=== PATIENT | male | born 1970 | race Caucasian/White ===

== ENCOUNTER 2017-11-23 06:23 | Inpatient (IN) ==
[2017-11-16 15:51] LABS: Basophils # (Auto) 0.1 K/mcL (0.0-0.3); Basophils % (Auto) 0.8 % (0.0-2.0); Eosinophils # (Auto) 0.8 K/mcL (0.0-0.7); Eosinophils % (Auto) 7.8 % (0.0-7.0); Granulocytes % (Auto) 58.3 % (38.0-78.0); Lymphocytes # (Auto) 2.9 K/mcL (1.5-4.8); Lymphocytes % (Auto) 27.4 % (15.5-49.0); Mean Cell Volume 92.7 fL (80.0-100.0); Mean Corpuscular HGB Conc 32.8 g/dL (31.0-36.0); Mean Corpuscular Hemoglobin 30.4 pg (26.0-34.0); Monocytes # (Auto) 0.6 K/mcL (0.1-0.9); Monocytes % (Auto) 5.7 % (1.0-12.0); Platelet Count 300 K/mcL (140-440); RBC 5.56 M/mcL (4.50-5.90); Red Cell Distribution Width 14.2 % (11.5-14.5)
[2017-11-16 16:09] LABS: Blood Urea Nitrogen 21 mg/dl (6-20)
[~2017-11-23 06:23] MED LIST: IPRATROPIUM/ALBUTEROL 3 ML AMPUL.NEB NEB PRN; SCOPOLAMINE 1 PATCH PATCH TOPICAL PRN
[2017-11-23] MEDS ORDERED: KETOROLAC 30 MG, ROPIVACAINE HCL/PF 49.5 ML, EPINEPHrine 0.5 MG, 0.9 % SODIUM CHLORIDE ... IJ ONE (08:00)
[2017-11-23] MEDS: ceFAZolin 1 GM VIAL IV SCH ×3 (09:39→16:52)
[2017-11-23] MEDS ORDERED: PROPOFOL 200 MG/20 ML VIAL IV ONE (09:53)
[2017-11-23] MEDS ORDERED: MIDAZOLAM 5 MG/5 ML VIAL ONE (09:53)
[2017-11-23] MEDS ORDERED: LIDOCAINE HCL/PF 100 MG/5 ML SYRINGE IV ONE (09:53)
[2017-11-23] MEDS ORDERED: DEXAMETHASONE 10 MG/ML VIAL ONE (09:53)
[2017-11-23] MEDS ORDERED: ONDANSETRON 4 MG/2 ML VIAL ONE (09:53)
[2017-11-23 09:56] LABS: Appearance,Urine CLEAR; Bilirubin,Urine NEG (NEG); Color,Urine YELLOW; Glucose,Urine (UA) NEGATIVE (NEG); Leukocyte Esterase,Urine NEG /uL (NEG); Nitrate,Urine NEG (NEG); Protein,Urine NEG (NEG); Specific Gravity,Urine 1.021 (1.000-1.035); Urine Blood NEG mg/dL (<0.03); Urobilinogen,Urine NEG (NEG)
[2017-11-23] MEDS ORDERED: GENTAMICIN SULFATE 800 MG/20 ML VIAL IR ONE (11:19)
[2017-11-23] MEDS ORDERED: BENZOCAINE/MENTHOL 1 LOZENGE PO PRN ×2 (11:59→12:04)
[2017-11-23] MEDS ORDERED: FLUMAZENIL 0.1 MG/ML ML IV PRN (11:59)
[2017-11-23] MEDS ORDERED: fentaNYL 100 MCG/2 ML VIAL IV PRN (11:59)
[2017-11-23] MEDS ORDERED: LACTATED RINGERS 250 ML IV PRN (11:59)
[2017-11-23] MEDS ORDERED: diphenhydrAMINE 50 MG/ML VIAL IV PRN (11:59)
[2017-11-23] MEDS ORDERED: IPRATROPIUM/ALBUTEROL 3 ML AMPUL.NEB NEB PRN (11:59)
[2017-11-23] MEDS ORDERED: NALOXONE HCL 0.4 MG/ML VIAL IV PRN (11:59)
[2017-11-23] MEDS ORDERED: MEPERIDINE 25 MG/ML SYRINGE IV PRN (11:59)
[2017-11-23] MEDS ORDERED: ACETAMINOPHEN 1,000 MG/100 ML BOTTLE IV ONE (11:59)
[2017-11-23] MEDS ORDERED: ONDANSETRON 4 MG/2 ML VIAL IV PRN ×2 (11:59→12:04)
[2017-11-23] MEDS ORDERED: PROMETHAZINE 25 MG/ML VIAL IV PRN (11:59)
[2017-11-23] MEDS ORDERED: LACTATED RINGERS 1,000 ML IV SCH (12:00)
[2017-11-23] MEDS ORDERED: HYDROmorphone 2 MG/ML SYRINGE IV PRN (12:04)
[2017-11-23] MEDS ORDERED: POLYETHYLENE GLYCOL 3350 17 GM PACKET PO PRN (12:04)
[2017-11-23] MEDS ORDERED: FLEETS ADULT ENEMA PR PRN (12:04)
[2017-11-23] MEDS ORDERED: MAGNESIUM HYDROXIDE 30 ML ORAL.SUSP PO PRN (12:04)
[2017-11-23] MEDS ORDERED: TRANEXAMIC ACID 1,000 MG/10 ML VIAL IV ONE (12:04)
[2017-11-23] MEDS ORDERED: ALBUTEROL SULFATE 1 PUFF INHALER INH PRN (12:10)
--- NOTE | 2017-11-23 12:56 | XRay Report ---
CLINICAL INFORMATION: Postop knee prostheses COMPARISON: None. FINDINGS: Total knee prostheses is anatomically aligned. No osseous abnormality. Periarticular gas and soft tissue swelling are seen as expected. IMPRESSION: Negative Interpreted and Authenticated by: Marshal Kate 11/23/17
--- NOTE | 2017-11-23 13:45 | Operative Note ---
DATE OF OPERATION: 11/23/2017 PREOPERATIVE DIAGNOSIS: Degenerative joint disease of the right knee. POSTOPERATIVE DIAGNOSIS: Degenerative joint disease of the right knee. OPERATION: Right total knee replacement. SURGEON: Alex Murillo M.D. ROAD PACKER OPERATOR: Terrence Ch PA-C. ANESTHESIA: General done by Rafal Mariano CRNA. SUMMARY OF PROCEDURE: General anesthesia was attained. The right leg was prepped and draped. A midline incision was made from the quadriceps to the tibial tubercle. It was taken down sharply to the quadriceps and medial retinaculum. Of note, the tourniquet was not used except for cementation. The quadriceps and medial retinaculum was split longitudinally. The patella was mobilized laterally. The menisci were resected anteriorly. The ACL remnant was removed. The knee was now exposed. It was flexed past 90 degrees. The intramedullary canal of the femur and tibia were opened with a drill. The femur was next reamed. The distal cutting guide was placed. A 9.5 mm resection was done distally. We then turned attention to the tibia. The knee was flexed past 90 degrees. The intramedullary canal of the tibia was reamed and then the proximal cutting guide was placed. The cut was made 7 mm below the low point medially. The cut was made. We then did a gap balancing technique. The femur sized between an 8 and 9. I ultimately used a size 8 component. We adjusted the flexion gap and external rotation using the gap brass roller. The pins were next placed. The femur ultimately sized to an 8. We did the anterior bevel cuts and posterior cut. The tibia was next prepared. The intramedullary canal was reamed and then broached. The tibia sized to a 7. We got an excellent combination of stability with a full range of motion using a 5 mm trial. The notch cuts were made in the femur. The two drill holes were also made in the distal femur. The patella was everted. His depth was 27 mm. An 11 to 12 mm cut was made parallel to the anterior surface. The patella sized to a 38. Excess lateral facet was removed while the trial was in place. The no-touch test showed a lateral release was not needed. The joint surfaces were thoroughly irrigated. The posterior part of the joint was infiltrated with local block for postoperative analgesia. The components were cemented in. Excess cement was removed. The knee was kept in full extension while the cement set up. We did use tourniquet for the cementation. Total tourniquet time was 19 minutes. All bleeding points were coagulated. The quadriceps and medial retinaculum were closed with interrupted and [id number] sutures of #2 FiberWire and then a running locking 0 Maxon. This was done in 30 degrees of flexion. The subcutaneous tissue was closed with interrupted buried 2-0 Monocryl. The skin was closed with viviana. A sterile compressive dressing was applied. The sponge and needle count was correct. The patient tolerated the procedure well and was taken to the recovery room in stable condition. TJF:[email or web address] Job ID: [id number] Doc ID: [id number] Alex Murillo MD
[2017-11-23] MEDS: 0.9 % SODIUM CHLORIDE 10 ML SYRINGE IV SCH ×2 (14:29→20:33)
[2017-11-23] MEDS: oxyCODONE HCL 5 MG TABLET PO PRN ×2 (14:35→19:57)
--- NOTE | 2017-11-23 15:22 | Brief Operative Note ---
Date of procedure: 11/23/17 Pre-op diagnosis: DJD right knee Post-op diagnosis: same Procedure: R TKR Grafts/Implants: Yes (Depuy Attune CR S+) Anesthesia: GETA Complications: none Surgeon: Alex Murillo Weather Algorithm Scientist: Terrence Ch Estimated blood loss (cc): 500 Tourniquet Time (Minutes): 19 Specimens Removed/Pathology: none sent Condition: stable Disposition: PACU
[2017-11-23] MEDS: 0.9 % SODIUM CHLORIDE 1,000 ML IV SCH (15:27)
[2017-11-23] MEDS: DOCUSATE SODIUM 100 MG CAPSULE PO SCH (19:56)
[2017-11-23] MEDS: ATORVASTATIN 20 MG TABLET PO SCH (19:57)
[2017-11-23] MEDS: ENOXAPARIN 30 MG/0.3 ML SYRINGE SQ SCH (19:58)
[2017-11-23] MEDS: METHOCARBAMOL 750 MG TABLET PO PRN (21:35)
[2017-11-24] MEDS: 0.9 % SODIUM CHLORIDE 1,000 ML IV SCH ×3 (00:27→18:54)
[2017-11-24] MEDS: ceFAZolin 1 GM VIAL IV SCH (00:37)
[2017-11-24] MEDS: oxyCODONE HCL 5 MG TABLET PO PRN ×5 (00:37→19:02)
[2017-11-24] MEDS: METHOCARBAMOL 750 MG TABLET PO PRN ×2 (04:46→14:21)
--- NOTE | 2017-11-24 07:46 | Orthopedic Progress Note ---
Subjective Patient information: Note initiated : 11/24/17 at 7:44 am Service Date, if different from initiated Date: [] Patient: Malik Arias 47 y/o M admitted on 11/23/17 for Right Total Knee Arthroplasty. Chief Complaint: [] Principal diagnosis: walked in hallways last night. Pain control good thud far Objective Vital signs: Vital Signs Temp Pulse Resp BP Pulse Ox 11/24/17 06:44 98.4 F 20 159/73 93 11/24/17 03:43 98.7 F 100 H 22 121/72 94 11/24/17 00:00 98.2 F 78 20 117/68 97 11/23/17 20:00 98.5 F 98 H 22 137/96 92 11/23/17 14:18 81 145/82 95 11/23/17 14:03 74 136/78 94 11/23/17 13:38 84 136/78 96 11/23/17 13:33 79 147/82 95 11/23/17 13:18 83 146/70 95 11/23/17 13:07 97.8 F 94 H 18 122/79 96 11/23/17 12:55 92 H 12 125/79 97 11/23/17 12:50 90 16 133/83 97 11/23/17 12:45 88 19 132/70 97 11/23/17 12:40 89 18 135/86 98 11/23/17 12:35 97 H 22 119/71 98 11/23/17 12:30 98 H 22 137/103 96 11/23/17 12:25 97.1 F 90 21 119/71 99 Intake and Output 11/23/17 11/24/17 11/24/17 21:59 05:59 13:59 Intake Total 120 / 120 1600 / 1600 Output Total 1200 / 1200 Balance 120 / 120 400 / 400 Intake: Oral 120 / 120 1600 / 1600 Output: Void Amount 1200 / 1200 Other: Meal Dinner fruit cup Percent of Meal Consumed 100% 100% Feeding Ability Independent Weight 373 lb Intake & Output: Intake & Output 11/23/17 11/24/17 11/24/17 21:59 05:59 13:59 Intake Total 120 / 120 1600 / 1600 Output Total 1200 / 1200 Balance 120 / 120 400 / 400 Weight 373 lb Intake: Oral 120 / 120 1600 / 1600 Output: Void Amount 1200 / 1200 Other: Meal Dinner fruit cup Percent of Meal Consumed 100% 100% Feeding Ability Independent Dressing: Yes clean, Yes dry, Yes intact Weight bearing status: full Extremities exam IM: Yes Foot pink and warm, Yes neurovascular intact - Labs CBC & BMP: 11/24/17 04:41 11/16/17 14:04 Labs: Orthopedic Labs 11/16/17 14:04 PT 13.2 INR 1.0 11/24/17 11/16/17 04:41 14:04 Hgb 14.4 16.9 H Hct 43.8 51.6 Assessment and Plan (1) Tricompartment degenerative joint disease of knee Continue PT, lovenox. Add CPM Status: Chronic Qualifiers:
[2017-11-24] MEDS: FERROUS SULFATE 325 MG TABLET PO SCH (08:15)
[2017-11-24] MEDS: diphenhydrAMINE 25 MG CAPSULE PO PRN ×3 (08:15→19:02)
[2017-11-24] MEDS: LISINOPRIL 10 MG TABLET PO SCH (08:15)
[2017-11-24] MEDS: DOCUSATE SODIUM 100 MG CAPSULE PO SCH ×2 (08:16→21:45)
[2017-11-24] MEDS: ENOXAPARIN 30 MG/0.3 ML SYRINGE SQ SCH ×2 (08:16→21:45)
[2017-11-24] MEDS: 0.9 % SODIUM CHLORIDE 10 ML SYRINGE IV SCH ×3 (10:10→21:45)
[2017-11-24] MEDS: ATORVASTATIN 20 MG TABLET PO SCH (21:44)
[2017-11-25] MEDS: 0.9 % SODIUM CHLORIDE 1,000 ML IV SCH ×2 (03:13→14:52)
[2017-11-25] MEDS: oxyCODONE HCL 5 MG TABLET PO PRN ×5 (04:15→21:14)
[2017-11-25] MEDS: 0.9 % SODIUM CHLORIDE 10 ML SYRINGE IV SCH ×3 (08:07→21:14)
[2017-11-25] MEDS: ENOXAPARIN 30 MG/0.3 ML SYRINGE SQ SCH ×2 (09:42→21:14)
[2017-11-25] MEDS: DOCUSATE SODIUM 100 MG CAPSULE PO SCH ×2 (09:42→21:14)
[2017-11-25] MEDS: FERROUS SULFATE 325 MG TABLET PO SCH (09:42)
[2017-11-25] MEDS: LISINOPRIL 10 MG TABLET PO SCH ×2 (11:51→19:09)
--- NOTE | 2017-11-25 20:08 | Orthopedic Progress Note ---
Subjective Patient information: Note initiated : 11/25/17 at 8:06 pm Service Date, if different from initiated Date: [] Patient: Malik Arias 47 y/o M admitted on 11/23/17 for Right Total Knee Arthroplasty. Chief Complaint: [] Principal diagnosis: walked in hallways last night. Pain control good thud far Objective Vital signs: Vital Signs Temp Pulse Pulse Resp BP BP Pulse Ox 11/25/17 19:06 98.6 F 109 H 20 141/92 96 11/25/17 15:34 97.8 F 18 149/76 94 11/25/17 11:53 97.5 F 20 148/80 93 11/25/17 07:44 97.8 F 20 130/85 94 11/25/17 04:12 98.4 F 104 H 22 127/80 93 11/25/17 01:40 97.4 F 86 22 124/77 95 11/25/17 01:20 109 H 127/85 88 L 11/25/17 01:10 112 H 109/73 90 11/25/17 01:05 101 H 93/73 93 11/24/17 21:49 88 20 129/80 96 Intake and Output 11/25/17 11/25/17 11/25/17 05:59 13:59 21:59 Intake Total 1170 / 1170 550 / 550 400 / 400 Output Total 1050 / 1050 950 / 950 650 / 650 Balance 120 / 120 -400 / -400 -250 / -250 Intake: Oral 1170 / 1170 550 / 550 400 / 400 Output: Void Amount 1050 / 1050 950 / 950 650 / 650 Other: Meal yogurt Lunch Percent of Meal Consumed 100% 25% Feeding Ability Independent # Voids 1 # Bowel Movements 1 Weight 349 lb 4.8 oz Intake & Output: Intake & Output 11/25/17 11/25/17 11/25/17 05:59 13:59 21:59 Intake Total 1170 / 1170 550 / 550 400 / 400 Output Total 1050 / 1050 950 / 950 650 / 650 Balance 120 / 120 -400 / -400 -250 / -250 Weight 349 lb 4.8 oz Intake: Oral 1170 / 1170 550 / 550 400 / 400 Output: Void Amount 1050 / 1050 950 / 950 650 / 650 Other: Meal yogurt Lunch Percent of Meal Consumed 100% 25% Feeding Ability Independent # Voids 1 # Bowel Movements 1 Incision clean and dry: Yes Dressing: Yes clean, Yes dry, Yes intact Weight bearing status: full - Diagnostic Results Knee x-ray: image reviewed (well positioned TKR, no complications) - Labs CBC & BMP: 11/25/17 04:28 11/16/17 14:04 Labs: Orthopedic Labs 11/16/17 14:04 PT 13.2 INR 1.0 11/25/17 11/24/17 11/16/17 04:28 04:41 14:04 Hgb 14.4 14.4 16.9 H Hct 43.2 43.8 51.6 Assessment and Plan (1) Tricompartment degenerative joint disease of knee Continue PT, lovenox.CPM Status: Chronic Qualifiers:
[2017-11-25] MEDS: ATORVASTATIN 20 MG TABLET PO SCH (21:14)
[2017-11-25] MEDS: ALBUTEROL SULFATE 2.5 MG/3 ML NEBULIZER NEB PRN (23:08)
[2017-11-26] MEDS: oxyCODONE HCL 5 MG TABLET PO PRN ×5 (01:59→21:40)
[2017-11-26] MEDS: METHOCARBAMOL 750 MG TABLET PO PRN ×3 (02:00→17:06)
[2017-11-26] MEDS: diphenhydrAMINE 25 MG CAPSULE PO PRN ×2 (02:14→21:40)
[2017-11-26] MEDS: 0.9 % SODIUM CHLORIDE 10 ML SYRINGE IV SCH ×3 (06:22→21:41)
[2017-11-26] MEDS: DOCUSATE SODIUM 100 MG CAPSULE PO SCH ×2 (09:23→21:40)
[2017-11-26] MEDS: LISINOPRIL 10 MG TABLET PO SCH (09:23)
[2017-11-26] MEDS: ENOXAPARIN 30 MG/0.3 ML SYRINGE SQ SCH ×2 (09:23→21:41)
[2017-11-26] MEDS: FERROUS SULFATE 325 MG TABLET PO SCH (09:23)
--- NOTE | 2017-11-26 12:34 | Orthopedic Progress Note ---
Subjective Patient information: Note initiated : 11/26/17 at 12:33 pm Service Date, if different from initiated Date: [] Patient: Malik Arias 47 y/o M admitted on 11/23/17 for Right Total Knee Arthroplasty. Chief Complaint: [] Principal diagnosis: walked in hallways last night. Pain control good thud far Objective Vital signs: Vital Signs Temp Pulse Pulse Resp BP Pulse Ox 11/26/17 11:30 97.3 F 20 106/67 93 11/26/17 06:49 98.7 F 20 99/64 93 11/26/17 03:36 98.3 F 102 H 20 126/80 94 11/25/17 23:27 98.4 F 99 H 22 131/87 94 11/25/17 23:17 95 H 14 11/25/17 23:09 94 11/25/17 19:06 98.6 F 109 H 20 141/92 96 11/25/17 15:34 97.8 F 18 149/76 94 Intake and Output 11/25/17 11/26/17 11/26/17 21:59 05:59 13:59 Intake Total 400 / 400 900 / 900 Output Total 1275 / 1275 1025 / 1025 975 / 975 Balance -875 / -875 -125 / -125 -975 / -975 Intake: Oral 400 / 400 900 / 900 Output: Void Amount 1275 / 1275 1025 / 1025 975 / 975 Other: Meal Dinner Percent of Meal Consumed 100% Feeding Ability Independent Weight 380 lb 12.8 oz Intake & Output: Intake & Output 11/25/17 11/26/17 11/26/17 21:59 05:59 13:59 Intake Total 400 / 400 900 / 900 Output Total 1275 / 1275 1025 / 1025 975 / 975 Balance -875 / -875 -125 / -125 -975 / -975 Weight 380 lb 12.8 oz Intake: Oral 400 / 400 900 / 900 Output: Void Amount 1275 / 1275 1025 / 1025 975 / 975 Other: Meal Dinner Percent of Meal Consumed 100% Feeding Ability Independent Incision: Yes healing, Yes clean and dry Incision clean and dry: Yes Weight bearing status: as tolerated Neurological exam IM: Yes neurovascular intact - Labs CBC & BMP: 11/26/17 04:23 11/16/17 14:04 Labs: Orthopedic Labs 11/16/17 14:04 PT 13.2 INR 1.0 11/26/17 11/25/17 11/24/17 04:23 04:28 04:41 Hgb 13.6 14.4 14.4 Hct 40.2 L 43.2 43.8 11/16/17 14:04 Hgb 16.9 H Hct 51.6 Assessment and Plan (1) Tricompartment degenerative joint disease of knee Continue PT, lovenox.CPM Status: Chronic Qualifiers: Laterality: right
[2017-11-26] MEDS: ALBUTEROL SULFATE 2.5 MG/3 ML NEBULIZER NEB PRN (20:30)
[2017-11-26] MEDS: ATORVASTATIN 20 MG TABLET PO SCH (21:40)
[2017-11-27] MEDS: oxyCODONE HCL 5 MG TABLET PO PRN ×3 (02:08→12:37)
[2017-11-27] MEDS: METHOCARBAMOL 750 MG TABLET PO PRN ×2 (02:08→12:37)
[2017-11-27] MEDS: 0.9 % SODIUM CHLORIDE 10 ML SYRINGE IV SCH ×2 (05:54→14:04)
--- NOTE | 2017-11-27 07:13 | Discharge Summary ---
Providers - Providers Patient information: Note initiated : 11/27/17 at 7:11 am Service Date, if different from initiated Date: [] Patient: Malik Arias 47 y/o M admitted on 11/23/17 for Right Total Knee Arthroplasty. Chief Complaint: [] Date of admission: 11/23/17 Discharge date: 11/27/17 Hospitalization Hospital course: Patient was admitted after Right TKA for post op pain control and PT. He will be discharged with home health. No complications during his stay. Discharge diagnosis: s/p right TKA Exam - Exam Incision healing: Yes Incision draining: No Incision red: No Incision swollen: No Clean and dry: Yes Weight bearing status: full Range of motion: 0-80 Ortho Discharge - TKA - Patient Instructions Diet: Regular Diet Activity: activity as tolerated Total Knee Protocol: For Total Knee: Start ROM DANILO with stationary bike or rocking chair. Work on gaining full extension of knee. Posterior dislocation precautions provided. Hip abductor strengthening and gait training instructions provided. Apply Cryocuff as instructed. Dressing Care: May shower in 2 days Additional Dressing Instructions: Leave dermabond patch over incision until follow up appointment Patient Education: Total Knee Replacement (DC) - Follow Up Plan Follow Up Appointments: Terrence Ch PA-C [Physician Shipping Assistant] - 12/06/17 Disposition: Home, Self-Care Prognosis: Fair Rehab Potential: Fair I certify that the patient requires SNF services: Yes (home health) - Orders For Discharge Prescriptions: Enoxaparin [Lovenox] 30 mg SQ BID #20 syringe oxyCODONE HCL [Roxicodone] 10 mg PO Q6HP PRN #60 tab PRN Reason: Pain Additional Discharge Orders: Physical Therapy at Discharge - TKA Location: Determined By Patient Pending Studies Resuscitation Status Full Code Diet Regular Diet Start MonNov 23 1214 Albuterol Sulfate (Ventolin) 2.5 mg NEB Q4-6HP PRN PRN Reason: bronchospasm Last Admin: 11/26/17 20:30 Dose: 2.5 mg Admin: 11/25/17 23:08 Dose: 2.5 mg Atorvastatin Calcium (Lipitor) 10 mg PO HS INDRA Last Admin: 11/26/17 21:40 Dose: 10 mg Admin: 11/25/17 21:14 Dose: 10 mg Admin: 11/24/17 21:44 Dose: 10 mg Admin: 11/23/17 19:57 Dose: 10 mg Diphenhydramine HCl (Benadryl) 25 mg PO Q4-6HP PRN PRN Reason: Allergic Symptoms Last Admin: 11/26/17 21:40 Dose: 25 mg Admin: 11/26/17 02:14 Dose: 25 mg Admin: 11/24/17 19:02 Dose: 25 mg Admin: 11/24/17 14:21 Dose: 25 mg Admin: 11/24/17 08:15 Dose: 25 mg Docusate Sodium (Colace) 100 mg PO BID [facility] Last Admin: 11/26/17 21:40 Dose: 100 mg Admin: 11/26/17 09:23 Dose: 100 mg Admin: 11/25/17 21:14 Dose: 100 mg Admin: 11/25/17 09:42 Dose: 100 mg Admin: 11/24/17 21:45 Dose: 100 mg Admin: 11/24/17 08:16 Dose: 100 mg Admin: 11/23/17 19:56 Dose: 100 mg Enoxaparin Sodium (Lovenox) 30 mg SQ BID [facility] Last Admin: 11/26/17 21:41 Dose: 30 mg Admin: 11/26/17 09:23 Dose: 30 mg Admin: 11/25/17 21:14 Dose: 30 mg Admin: 11/25/17 09:42 Dose: 30 mg Admin: 11/24/17 21:45 Dose: 30 mg Admin: 11/24/17 08:16 Dose: 30 mg Admin: 11/23/17 19:58 Dose: 30 mg Ferrous Sulfate (Ferrous Sulfate) 650 mg PO [facility] Last Admin: 11/26/17 09:23 Dose: 650 mg Admin: 11/25/17 09:42 Dose: 650 mg Admin: 11/24/17 08:15 Dose: 650 mg Lisinopril (Zestril) 10 mg PO QDAY [facility] Last Admin: 11/26/17 09:23 Dose: 10 mg Admin: 11/25/17 19:09 Dose: 10 mg Admin: 11/25/17 11:51 Dose: Not Given Admin: 11/24/17 08:15 Dose: 10 mg Methocarbamol (Robaxin) 750 mg PO Q6HP PRN PRN Reason: Muscle Spasm Last Admin: 11/27/17 02:08 Dose: 750 mg Admin: 11/26/17 17:06 Dose: 750 mg Admin: 11/26/17 09:26 Dose: 750 mg Admin: 11/26/17 02:00 Dose: 750 mg Admin: 11/24/17 14:21 Dose: 750 mg Admin: 11/24/17 04:46 Dose: 750 mg Admin: 11/23/17 21:35 Dose: 750 mg Oxycodone HCl (Roxicodone) 0 mg PO Q4HP PRN PRN Reason: PAIN LEVEL 3-6 Last Admin: 11/27/17 06:54 Dose: 10 mg Admin: 11/27/17 02:08 Dose: 10 mg Admin: 11/26/17 21:40 Dose: 10 mg Admin: 11/26/17 17:07 Dose: 10 mg Admin: 11/26/17 12:21 Dose: 10 mg Admin: 11/26/17 07:09 Dose: 10 mg Admin: 11/26/17 01:59 Dose: 10 mg Admin: 11/25/17 21:14 Dose: 10 mg Admin: 11/25/17 16:41 Dose: 10 mg Admin: 11/25/17 12:51 Dose: 10 mg Admin: 11/25/17 08:07 Dose: 10 mg Admin: 11/25/17 04:15 Dose: 10 mg Admin: 11/24/17 19:02 Dose: 10 mg Admin: 11/24/17 14:21 Dose: 10 mg Admin: 11/24/17 10:06 Dose: 10 mg Admin: 11/24/17 04:47 Dose: 10 mg Admin: 11/24/17 00:37 Dose: 10 mg Admin: 11/23/17 19:57 Dose: 10 mg Admin: 11/23/17 14:35 Dose: 5 mg Fluticasone Furoate [Arnuity Ellipta] 200 Mcg Inhaler 1 dose INH DAILY INDRA Last Admin: 11/26/17 09:27 Dose: Not Given Admin: 11/25/17 09:44 Dose: Not Given Admin: 11/24/17 09:04 Dose: Not Given Sodium Chloride (Saline Flush) 10 ml IV Q8 INDRA Last Admin: 11/27/17 05:54 Dose: Admin: 11/26/17 21:41 Dose: Admin: 11/26/17 12:22 Dose: 10 ml Admin: 11/26/17 06:22 Dose: 10 ml Admin: 11/25/17 21:14 Dose: 10 ml Admin: 11/25/17 12:54 Dose: 10 ml Admin: 11/25/17 08:07 Dose: 10 ml Admin: 11/24/17 21:45 Dose: 10 ml Admin: 11/24/17 14:19 Dose: 10 ml Admin: 11/24/17 10:10 Dose: 10 ml Admin: 11/23/17 20:33 Dose: Not Given Admin: 11/23/17 14:29 Dose: Not Given Shift Summary 11/27/17 03:51 Shift Summary by Kayla Son&Aneta. VSS with elevated BP and HR. surgical incision to right knee had Dermabond in place. Redness to right knee is decreasing; pitting edema edema to entire right leg. Up with FWW; requiring less assistance from staff when transferring from sitting to standing. Plan is for patient to d/c home today. Transportation has been arranged and home health is being set up. Will update at bedside. Initialized on 11/27/17 03:51 - END OF NOTE
[2017-11-27] MEDS: ENOXAPARIN 30 MG/0.3 ML SYRINGE SQ SCH (07:58)
[2017-11-27] MEDS: DOCUSATE SODIUM 100 MG CAPSULE PO SCH (07:59)
[2017-11-27] MEDS: LISINOPRIL 10 MG TABLET PO SCH (07:59)
[2017-11-27] MEDS: FERROUS SULFATE 325 MG TABLET PO SCH (07:59)
--- NOTE | 2017-11-27 12:34 | Discharge Summary ---
Providers - Providers Patient information: Note initiated : 11/27/17 at 12:32 pm Service Date, if different from initiated Date: [] Patient: Malik Arias 47 y/o M admitted on 11/23/17 for Right Total Knee Arthroplasty. Chief Complaint: [] Discharge date: 11/27/17 Hospitalization Hospital course: Patient was admitted for PT and pain control. No complications. Discharge diagnosis: s/p right TKA Exam - Exam Incision healing: Yes Incision draining: No Incision red: No Incision swollen: Yes Incision inflamed: Yes Clean and dry: Yes Weight bearing status: full Range of motion: 0-80 Ortho Discharge - TKA - Patient Instructions Diet: Regular Diet Activity: activity as tolerated Total Knee Protocol: For Total Knee: Start ROM DANILO with stationary bike or rocking chair. Work on gaining full extension of knee. Posterior dislocation precautions provided. Hip abductor strengthening and gait training instructions provided. Apply Cryocuff as instructed. Dressing Care: May shower in 2 days Patient Education: Methocarbamol (By mouth), Oxycodone, Rapid Release (By mouth ), Enoxaparin (Injection), Total Knee Replacement (DC) Additional Instructions: Start ROM DANILO with stationary bike or rocking chair. Work on gaining full extension of knee. Weight bearing as tolerated. Activity as tolerated. You will be going home with [employer]. They will be contacting you to set up a time and date to come to your home. If they don't contact you by Monday, you call them @ [phone]. You have been set up with [employer]. There is a pamphlet with your discharge paperwork.Their number is [phone]. You have Dermabond (a dressing with a mesh-like appearance), leave open to air. Leave in place until follow up appointment with Terrence Ch at [facility]. You may wear DEBI wrap during the day if operative extremity is swollen.You may shower. Do not use soaps, lotion, or cream over dressing. The Dermabond dressing can get wet. Do not scrub dressing. Pat dry. No soaking in bathtub, hot tubs, or spa. To avoid constipation while taking any narcotic pain medication, take an over the counter stool softener/laxative. Use your Cryocuff or ice packs as directed, on for 20 minutes at a time throughout the day. This and elevation will help with pain and swelling. Call your physician for fevers above 100.5 or pain not controlled by medication. Your prescriptions are with your discharge information. Some medications were electronically transmitted to your pharmacy of choice. - Problem Maintenance (1) Tricompartment degenerative joint disease of knee Status: Chronic Qualifiers: Laterality: right - Follow Up Plan Follow Up Appointments: Terrence Ch PA-C [Physician Horizontal Drill Operator] - 12/06/17 10:40 am Disposition: Home, Self-Care Prognosis: Fair Rehab Potential: Fair I certify that the patient requires SNF services: Yes Overall status at discharge: patient is progressing back to baseline - Orders For Discharge Prescriptions: Enoxaparin [Lovenox] 30 mg SQ BID #20 syringe Methocarbamol [Robaxin] 750 mg PO Q6HP PRN #30 tab PRN Reason: Muscle Spasm oxyCODONE HCL [Roxicodone] 10 mg PO Q6HP PRN #60 tab PRN Reason: Pain Additional Discharge Orders: Physical Therapy at Discharge - TKA Location: Determined By Patient Pending Studies Resuscitation Status Full Code Diet Regular Diet Start MonNov 23 1214 Albuterol Sulfate (Ventolin) 2.5 mg NEB Q4-6HP PRN PRN Reason: bronchospasm Last Admin: 11/26/17 20:30 Dose: 2.5 mg Admin: 11/25/17 23:08 Dose: 2.5 mg Atorvastatin Calcium (Lipitor) 10 mg PO HS [facility] Last Admin: 11/26/17 21:40 Dose: 10 mg Admin: 11/25/17 21:14 Dose: 10 mg Admin: 11/24/17 21:44 Dose: 10 mg Admin: 11/23/17 19:57 Dose: 10 mg Diphenhydramine HCl (Benadryl) 25 mg PO Q4-6HP PRN PRN Reason: Allergic Symptoms Last Admin: 11/26/17 21:40 Dose: 25 mg Admin: 11/26/17 02:14 Dose: 25 mg Admin: 11/24/17 19:02 Dose: 25 mg Admin: 11/24/17 14:21 Dose: 25 mg Admin: 11/24/17 08:15 Dose: 25 mg Docusate Sodium (Colace) 100 mg PO BID [facility] Last Admin: 11/27/17 07:59 Dose: 100 mg Admin: 11/26/17 21:40 Dose: 100 mg Admin: 11/26/17 09:23 Dose: 100 mg Admin: 11/25/17 21:14 Dose: 100 mg Admin: 11/25/17 09:42 Dose: 100 mg Admin: 11/24/17 21:45 Dose: 100 mg Admin: 11/24/17 08:16 Dose: 100 mg Admin: 11/23/17 19:56 Dose: 100 mg Enoxaparin Sodium (Lovenox) 30 mg SQ BID [facility] Last Admin: 11/27/17 07:58 Dose: 30 mg Admin: 11/26/17 21:41 Dose: 30 mg Admin: 11/26/17 09:23 Dose: 30 mg Admin: 11/25/17 21:14 Dose: 30 mg Admin: 11/25/17 09:42 Dose: 30 mg Admin: 11/24/17 21:45 Dose: 30 mg Admin: 11/24/17 08:16 Dose: 30 mg Admin: 11/23/17 19:58 Dose: 30 mg Ferrous Sulfate (Ferrous Sulfate) 650 mg PO [facility] Last Admin: 11/27/17 07:59 Dose: 650 mg Admin: 11/26/17 09:23 Dose: 650 mg Admin: 11/25/17 09:42 Dose: 650 mg Admin: 11/24/17 08:15 Dose: 650 mg Lisinopril (Zestril) 10 mg PO QDAY [facility] Last Admin: 11/27/17 07:59 Dose: 10 mg Admin: 11/26/17 09:23 Dose: 10 mg Admin: 11/25/17 19:09 Dose: 10 mg Admin: 11/25/17 11:51 Dose: Not Given Admin: 11/24/17 08:15 Dose: 10 mg Methocarbamol (Robaxin) 750 mg PO Q6HP PRN PRN Reason: Muscle Spasm Last Admin: 11/27/17 02:08 Dose: 750 mg Admin: 11/26/17 17:06 Dose: 750 mg Admin: 11/26/17 09:26 Dose: 750 mg Admin: 11/26/17 02:00 Dose: 750 mg Admin: 11/24/17 14:21 Dose: 750 mg Admin: 11/24/17 04:46 Dose: 750 mg Admin: 11/23/17 21:35 Dose: 750 mg Oxycodone HCl (Roxicodone) 0 mg PO Q4HP PRN PRN Reason: PAIN LEVEL 3-6 Last Admin: 11/27/17 06:54 Dose: 10 mg Admin: 11/27/17 02:08 Dose: 10 mg Admin: 11/26/17 21:40 Dose: 10 mg Admin: 11/26/17 17:07 Dose: 10 mg Admin: 11/26/17 12:21 Dose: 10 mg Admin: 11/26/17 07:09 Dose: 10 mg Admin: 11/26/17 01:59 Dose: 10 mg Admin: 11/25/17 21:14 Dose: 10 mg Admin: 11/25/17 16:41 Dose: 10 mg Admin: 11/25/17 12:51 Dose: 10 mg Admin: 11/25/17 08:07 Dose: 10 mg Admin: 11/25/17 04:15 Dose: 10 mg Admin: 11/24/17 19:02 Dose: 10 mg Admin: 11/24/17 14:21 Dose: 10 mg Admin: 11/24/17 10:06 Dose: 10 mg Admin: 11/24/17 04:47 Dose: 10 mg Admin: 11/24/17 00:37 Dose: 10 mg Admin: 11/23/17 19:57 Dose: 10 mg Admin: 11/23/17 14:35 Dose: 5 mg Fluticasone Furoate [Arnuity Ellipta] 200 Mcg Inhaler 1 dose INH DAILY INDRA Last Admin: 11/27/17 09:54 Dose: Not Given Admin: 11/26/17 09:27 Dose: Not Given Admin: 11/25/17 09:44 Dose: Not Given Admin: 11/24/17 09:04 Dose: Not Given Sodium Chloride (Saline Flush) 10 ml IV Q8 INDRA Last Admin: 11/27/17 05:54 Dose: Admin: 11/26/17 21:41 Dose: Admin: 11/26/17 12:22 Dose: 10 ml Admin: 11/26/17 06:22 Dose: 10 ml Admin: 11/25/17 21:14 Dose: 10 ml Admin: 11/25/17 12:54 Dose: 10 ml Admin: 11/25/17 08:07 Dose: 10 ml Admin: 11/24/17 21:45 Dose: 10 ml Admin: 11/24/17 14:19 Dose: 10 ml Admin: 11/24/17 10:10 Dose: 10 ml Admin: 11/23/17 20:33 Dose: Not Given Admin: 11/23/17 14:29 Dose: Not Given Shift Summary 11/27/17 03:51 Shift Summary by Kayla Son&Juaquin4. VSS with elevated BP and HR. surgical incision to right knee had Dermabond in place. Redness to right knee is decreasing; pitting edema edema to entire right leg. Up with FWW; requiring less assistance from staff when transferring from sitting to standing. Plan is for patient to d/c home today. Transportation has been arranged and home health is being set up. Will update at bedside. Initialized on 11/27/17 03:51 - END OF NOTE
== END 2017-11-27 14:00 | disposition home or self-care (01) | DRG 470 ==
LOC: MEDSUR 06:23
PROVIDERS: ADMIT Orthopaedic Surgery Foot and Ankle Surgery; ATTEND Orthopaedic Surgery Foot and Ankle Surgery

== ENCOUNTER 2017-12-17 16:28 | Observation (INO) ==
[2017-12-17] MEDS ORDERED: IOPAMIDOL 100 ML BOTTLE IV ONE (16:29)
[2017-12-17] MEDS ORDERED: ONDANSETRON 4 MG/2 ML VIAL IV ONE (17:31)
[2017-12-17] MEDS ORDERED: IPRATROPIUM/ALBUTEROL 3 ML AMPUL.NEB NEB ONE (17:31)
[2017-12-17] MEDS ORDERED: 0.9 % SODIUM CHLORIDE 1,000 ML IV ONE (17:31)
[2017-12-17 18:02] LABS: Basophils # (Auto) 0 K/mcL (0.0-0.3); Basophils % (Auto) 0.4 % (0.0-2.0); Eosinophils # (Auto) 0.4 K/mcL (0.0-0.7); Granulocytes % (Auto) 63.4 % (38.0-78.0); Lymphocytes # (Auto) 1.5 K/mcL (1.5-4.8); Lymphocytes % (Auto) 20.7 % (15.5-49.0); Mean Cell Volume 91.4 fL (80.0-100.0); Mean Corpuscular HGB Conc 33.1 g/dL (31.0-36.0); Mean Corpuscular Hemoglobin 30.3 pg (26.0-34.0); Monocytes # (Auto) 0.7 K/mcL (0.1-0.9); Monocytes % (Auto) 9.5 % (1.0-12.0); Platelet Count 314 K/mcL (140-440); RBC 5.02 M/mcL (4.50-5.90)
[2017-12-17 18:19] LABS: Creatine Kinase MB 1.3 ng/ml (0-4.9)
[2017-12-17 18:22] LABS: ALT/SGPT 24 U/l (0-40); Albumin/Globulin Ratio 1.2 (1.0-2.3); Alkaline Phosphatase 102 U/L (39-117); Blood Urea Nitrogen 12 mg/dl (6-20); Creatine Kinase 54 IU/L (24-195)
--- NOTE | 2017-12-17 18:45 | XRay Report ---
CLINICAL INFORMATION: Dyspnea COMPARISON: 03/21/2017 FINDINGS: The heart size, mediastinum and pulmonary vessels are unremarkable. The lungs are clear. There are no effusions. The bones and soft tissues are within normal limits. IMPRESSION: Normal chest. Interpreted and Authenticated by: Marshal Kate 12/17/17
--- NOTE | 2017-12-17 19:32 | Cat Scan Report ---
CLINICAL INFORMATION: Shortness of breath and elevated d-dimer COMPARISON: None. TECHNIQUE: 80 cc of Isovue-300 were injected intravenously. Using SmartPrep to maximize pulmonary artery opacification, 2.5 mm helical slices were obtained from the lung apices through the lung bases. Following reconstruction, 2.5 mm sagittal, coronal, and axial reformations were processed. The exam was reviewed at mediastinal, lung, and bone windows. The exam was performed using radiation dose optimization techniques including, but not limited to, automated exposure control, adjustment of the mA and/or kV according to patient size and use of iterative reconstruction technique. FINDINGS: The contrast bolus is suboptimal due to patient's large size. There appears be small emboli within the origin of the lateral basal segmental right lower lobe pulmonary artery (image 68), the superior segment right lower lobe (also image 68), apical segmental right upper lobe pulmonary artery (image 34. Probable embolus in the anterior basal segmental artery left lower lobe (image 75. The main pulmonary artery is normal in contour and caliber and the heart is normal in size and configuration - no right chamber enlargement. Coronary arteries appear unremarkable. Small hiatal hernia is noted. There is no adenopathy mediastinal hilar or axillary region. The thoracic aorta is normal. Lungs are clear. No effusions. Bones and soft tissues the chest wall are normal IMPRESSION: 1. Suboptimal contrast bolus. There appear to be small emboli within the lateral basilar segment of the right lower lobe, superior segment right lower lobe and apical segment right upper lobe. In this particular case, suggest bilateral leg Doppler to evaluate for lower leg thrombi. 2. Small hiatal hernia Interpreted and Authenticated by: Marshal Kate 12/17/17
--- NOTE | 2017-12-17 20:19 | Emergency Department Note ---
SOB HPI - General Chief Complaint: Shortness of Breath/Dyspnea Stated Complaint: dizziness, diarrhea, cough Time Seen by Provider: 12/17/17 16:37 Source: patient Mode of arrival: ambulatory Limitations: no limitations - History of Present Illness 47-year-old male presents with shortness of breath for the last 3 days. Worse today. States he has been sweaty. Positive nausea. No vomiting or diarrhea. Does have a mild nonproductive cough. He did have right knee surgery the first week of November. He was discharged from the hospital to [facility]. He states on Monday they sent him home. They were supposed to have him all set up with the [facility] but he states no one ever came from [facility]. States he knew he was going to need more help at home then he could do on his own which is why he tried to have this set up. States he is frustrated and does not know why they never came. Denies any leg pain other than some discomfort in the right knee which she has had since the surgery. Unknown fever as he has not taken his temperature at home. Has had some chills. No vomiting. Has had a few episodes of diarrhea. He also reports that in the prison he was on Lovenox twice a day. However they discharged him home and did not tell him anything about his blood thinners and he has not been taking his aspirin or any sort of blood thinners since he has been home. Improves with: nothing Worsens with: exertion Known history of: asthma Associated symptoms: Reports: pain with inspiration, cough, orthopnea, diaphoresis. Denies: chest pain, fever, wheezing, palpitations, syncope Treatment prior to arrival: none - Related Data Home Medications Medication Instructions Recorded Confirmed Albuterol Sulfate 2.5 mg INHALATION Q4-6HP PRN 11/16/17 11/16/17 Ferrous Sulfate 650 mg PO [facility] 11/16/17 11/16/17 Fluticasone Furoate [Arnuity 1 puff IH DAILY 11/16/17 11/16/17 Ellipta] Montelukast Sodium [Singulair] 10 mg PO HS 11/16/17 11/16/17 Previous Rx's Medication Instructions Recorded albuterol sulfate HFA 90 2 puff INHALATION Q4H PRN #18 g 06/07/16 mcg/actuation aerosol inhaler atorvastatin 10 mg tablet 10 mg PO QDAY #30 tab 08/09/17 lisinopril 10 mg tablet 10 mg PO QDAY #90 tab 11/07/17 Enoxaparin [Lovenox] 30 mg SQ BID #20 syringe 11/26/17 oxyCODONE HCL [Roxicodone] 10 mg PO Q6HP PRN #60 tab 11/26/17 Methocarbamol [Robaxin] 750 mg PO Q6HP PRN #30 tab 11/27/17 Allergies Allergy/AdvReac Type Severity Reaction Status Date / Time hydrocodone AdvReac Mild Dizziness Verified 11/16/17 13:14 Zolpidem [From Ambien] AdvReac Mild Other Verified 11/16/17 13:14 Review of Systems All systems ED: reviewed and negative except as stated. Past Medical History - Past Medical History Medical history: Reports: DM, hyperlipidemia, other (morbid obesity) Surgical history ED: Reports: other (right knee sx Nov 2017) - Social History smoking status: Never smoker Alcohol use: Reports: Rarely Drug use: Reports: none Physical Exam Limitations: no limitations General appearance: alert, obese, other (mild tachypnea and tachycardia on arrival) Head: atraumatic, normocephalic, normal inspection Eye: Present: normal appearance. Absent: conjunctival injection ENT: normal exam, normal oropharynx, mucous membranes moist, TM's normal bilaterally, normal external ear exam Neck: Present: normal inspection, trachea midline. Absent: tenderness, lymphadenopathy Chest: Present: normal inspection, symmetric chest wall rise Respiratory: Present: wheezes (Faint wheezes to the bases bilaterally on expiration. Mildly diminished at the bases. Otherwise clear throughout). Absent: respiratory distress, accessory muscle use Cardiovascular: Present: regular rate, normal heart sounds Abdominal: Present: soft, normal bowel sounds. Absent: distention, tenderness Extremities: Present: normal capillary refill, other (The right knee with surgical incision healing well. Well approximated and no drainage. There is mild warmth to the right knee. No erythema. Minimal edema to the right knee only.). Absent: calf tenderness Neurological: Present: alert, oriented X3. Absent: normal gait (Walks with a cane), motor sensory deficit Psychiatric: Present: normal affect, normal mood Skin: Present: warm, dry, intact, normal color Course Course Narrative: case discussed with the hospitalist Dr. Gomez who agrees to admit the patient. We have not felt in the patient's best interest to go home as he is definitely symptomatic with any type of exertion and has a hard time caring for himself at home Vital Signs Temperature 98.7 F 12/17/17 16:29 Pulse Rate 119 H 12/17/17 16:29 Respiratory Rate 18 12/17/17 16:29 Blood Pressure 118/84 12/17/17 16:29 Pulse Oximetry (%) 98 12/17/17 16:29 Temperature 98.7 F 12/17/17 16:29 Pulse Rate 103 H 12/17/17 20:05 Respiratory Rate 14 12/17/17 20:05 Blood Pressure 121/81 12/17/17 20:03 Pulse Oximetry (%) 97 12/17/17 20:05 Shortness of Breath/Dyspnea - Lab Data Lab results reviewed: Yes I reviewed the patient's lab results. Result diagrams: 12/17/17 16:56 12/17/17 16:56 Lab Results 12/17/17 12/17/17 12/17/17 Range/Units 16:56 16:56 16:56 WBC 7.1 (4.5-11.0) K/mcL RBC 5.02 (4.50-5.90) M/mcL Hgb 15.2 (13.5-16.5) g/dL Hct 45.9 (41.0-55.0) % MCV 91.4 (80.0-100.0) fL MCH 30.3 (26.0-34.0) pg MCHC 33.1 (31.0-36.0) g/dL RDW 14.0 (11.5-14.5) % Plt Count 314 (140-440) K/mcL MPV 9.7 (7.4-10.4) fL Gran % 63.4 (38.0-78.0) % Lymph % (Auto) 20.7 (15.5-49.0) % Edmonson % (Auto) 9.5 (1.0-12.0) % Eos % (Auto) 6.0 (0.0-7.0) % Baso % (Auto) 0.4 (0.0-2.0) % Gran # 4.5 (1.8-8.0) K/mcL Lymph # (Auto) 1.5 (1.5-4.8) K/mcL Edmonson # (Auto) 0.7 (0.1-0.9) K/mcL Eos # (Auto) 0.4 (0.0-0.7) K/mcL Baso # (Auto) 0 (0.0-0.3) K/mcL POC PT (11.9-14.5) sec POC INR (0.9-1.2) D-Dimer 3.56 H (0.00-0.40) ug/ml VBG Lactic Acid (0.5-2.2) mmol/L Sodium 138 (133-145) mmol/L Potassium 4.2 (3.3-5.1) mmol/L Chloride 98 (96-108) mmol/L Carbon Dioxide 24 (22-30) mmol/L Anion Gap 16.0 (8-16) BUN 12 (6-20) mg/dl Creatinine 0.9 (0.7-1.2) mg/dl GFR Calculation 101 Glucose 118 H (70-105) mg/dL Calcium 9.0 (8.6-10.4) mg/dl Total Bilirubin 0.3 (0.0-1.0) mg/dL AST 17 (0-37) U/l ALT 24 (0-40) U/l Alkaline Phosphatase 102 (39-117) U/L Total Creatine Kinase 54 (24-195) IU/L CK-MB (CK-2) 1.3 (0-4.9) ng/ml Troponin T (0-0.03) ng/ml Total Protein 7.4 (5.9-8.4) gm/dL Albumin 4.0 (3.2-5.2) gm/dL Globulin 3.4 (2.2-3.7) gm/dL Albumin/Globulin Ratio 1.2 (1.0-2.3) 12/17/17 12/17/17 12/17/17 Range/Units 16:56 17:06 19:00 WBC (4.5-11.0) K/mcL RBC (4.50-5.90) M/mcL Hgb (13.5-16.5) g/dL Hct (41.0-55.0) % MCV (80.0-100.0) fL MCH (26.0-34.0) pg MCHC (31.0-36.0) g/dL RDW (11.5-14.5) % Plt Count (140-440) K/mcL MPV (7.4-10.4) fL Gran % (38.0-78.0) % Lymph % (Auto) (15.5-49.0) % Edmonson % (Auto) (1.0-12.0) % Eos % (Auto) (0.0-7.0) % Baso % (Auto) (0.0-2.0) % Gran # (1.8-8.0) K/mcL Lymph # (Auto) (1.5-4.8) K/mcL Edmonson # (Auto) (0.1-0.9) K/mcL Eos # (Auto) (0.0-0.7) K/mcL Baso # (Auto) (0.0-0.3) K/mcL POC PT 13.4 (11.9-14.5) sec POC INR 1.1 (0.9-1.2) D-Dimer (0.00-0.40) ug/ml VBG Lactic Acid 1.4 (0.5-2.2) mmol/L Sodium (133-145) mmol/L Potassium (3.3-5.1) mmol/L Chloride (96-108) mmol/L Carbon Dioxide (22-30) mmol/L Anion Gap (8-16) BUN (6-20) mg/dl Creatinine (0.7-1.2) mg/dl GFR Calculation Glucose (70-105) mg/dL Calcium (8.6-10.4) mg/dl Total Bilirubin (0.0-1.0) mg/dL AST (0-37) U/l ALT (0-40) U/l Alkaline Phosphatase (39-117) U/L Total Creatine Kinase (24-195) IU/L CK-MB (CK-2) (0-4.9) ng/ml Troponin T < 0.01 (0-0.03) ng/ml Total Protein (5.9-8.4) gm/dL Albumin (3.2-5.2) gm/dL Globulin (2.2-3.7) gm/dL Albumin/Globulin Ratio (1.0-2.3) - Radiology Data Radiology results reviewed: Yes I reviewed the patient's radiology results. Disposition Pt seen by WOMEN'S STUDIES PROFESSOR/PA only: No Clinical Impression: Pulmonary emboli, SOB (shortness of breath) Disposition: Xfer As Inpt ([facility]) Condition: Fair Referrals: Emmanuel Morales PA-C [Primary Care Provider] - Alex Murillo MD [Physician] - Time of Disposition: 21:15
[2017-12-17] MEDS ORDERED: APIXABAN 5 MG TABLET PO SCH ×2 (21:15→22:00)
[2017-12-17] MEDS ORDERED: MONTELUKAST 10 MG TABLET PO SCH (21:36)
[2017-12-17] MEDS ORDERED: ACETAMINOPHEN 325 MG TABLET PO PRN (21:36)
[2017-12-17] MEDS ORDERED: ATORVASTATIN 20 MG TABLET PO SCH (21:36)
[2017-12-17] MEDS ORDERED: predniSONE 20 MG TABLET PO ONE (21:36)
[2017-12-17] MEDS ORDERED: METHOCARBAMOL 750 MG TABLET PO PRN (21:36)
[2017-12-17] MEDS ORDERED: oxyCODONE HCL 5 MG TABLET PO PRN (21:36)
[2017-12-17] MEDS ORDERED: ONDANSETRON 4 MG/2 ML VIAL IV PRN (21:36)
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
[2017-12-17] MEDS: APIXABAN 5 MG TABLET PO SCH (22:21)
[2017-12-17] MEDS ORDERED: HYDROmorphone 2 MG/ML VIAL IM ONE (22:38)
[2017-12-18] MEDS: IPRATROPIUM/ALBUTEROL 3 ML AMPUL.NEB NEB SCH ×2 (00:03→03:30)
--- NOTE | 2017-12-18 00:18 | Emergency Department Note ---
ED Note Addendum Note Addendum: I saw this patient with Elise MATIAS. I agree with her evaluation management and documentation.
--- NOTE | 2017-12-18 07:45 | Ultrasound Report ---
History: Pulmonary emboli Findings: There is normal augmentation and compressibility of the deep veins and greater saphenous veins in both legs from the groin to the calf. There is no evidence of venous thrombosis. No abnormal fluid collection is present. Impression: Normal exam, without evidence of deep venous thrombosis in either leg Interpreted and Authenticated by: Christiano Covarrubias 12/18/17
[2017-12-18] MEDS ORDERED: predniSONE 20 MG TABLET PO SCH (08:00)
[2017-12-18 08:27] LABS: Basophils # (Auto) 0 K/mcL (0.0-0.3); Basophils % (Auto) 0.4 % (0.0-2.0); Eosinophils # (Auto) 0.5 K/mcL (0.0-0.7); Eosinophils % (Auto) 7.2 % (0.0-7.0); Lymphocytes # (Auto) 2.1 K/mcL (1.5-4.8); Lymphocytes % (Auto) 31.1 % (15.5-49.0); Mean Cell Volume 91.8 fL (80.0-100.0); Mean Corpuscular HGB Conc 33.3 g/dL (31.0-36.0); Mean Corpuscular Hemoglobin 30.6 pg (26.0-34.0); Monocytes # (Auto) 0.8 K/mcL (0.1-0.9); Monocytes % (Auto) 12.3 % (1.0-12.0); Platelet Count 315 K/mcL (140-440); RBC 4.62 M/mcL (4.50-5.90); Red Cell Distribution Width 13.9 % (11.5-14.5)
[2017-12-18 08:56] LABS: ALT/SGPT 21 U/l (0-40); Albumin 3.7 gm/dL (3.2-5.2); Albumin/Globulin Ratio 1.3 (1.0-2.3); Alkaline Phosphatase 90 U/L (39-117); Bilirubin,Direct < 0.2 mg/dL (0.0-0.3); Blood Urea Nitrogen 14 mg/dl (6-20); Gamma Glutamyl Transpeptidase 29 U/L (8-61); Uric Acid 7.3 mg/dL (2.5-8.0)
[2017-12-18] MEDS ORDERED: LISINOPRIL 10 MG TABLET PO SCH (09:00)
[2017-12-18] MEDS ORDERED: FAMOTIDINE 20 MG TABLET PO SCH (09:00)
[2017-12-18] MEDS: APIXABAN 5 MG TABLET PO SCH (09:01)
--- NOTE | 2017-12-18 10:32 | Discharge Summary ---
Medical - DS: Prov Patient information: Note initiated : 12/18/17 at 10:30 am Service Date, if different from initiated Date: [] Patient: Malik Arias 47 y/o M admitted on 12/17/17 for dizziness, diarrhea, cough. Chief Complaint: [] Date of admission: 12/17/17 21:35 Discharge date: 12/18/17 Primary care physician: Emmanuel Morales Admitting clinician: No Wu Discharging clinician: No Wu Medical - DS: Meds - Discharge Medications Prescriptions: Apixaban [Eliquis] 5 mg PO BID #192 tab Levocetirizine Dihydrochloride [Xyzal] 5 mg PO DAILY #7 tab Active and Home Medications: Home Medications albuterol sulfate HFA 90 mcg/actuation aerosol inhaler 2 puff INHALATION Q4H PRN #18 g 06/07/16 [Rx Confirmed 11/16/17 Last Taken Unknown] atorvastatin 10 mg tablet 10 mg PO QDAY #30 tab 08/09/17 [Rx Confirmed 11/16/17 Last Taken Unknown] lisinopril 10 mg tablet 10 mg PO QDAY #90 tab 11/07/17 [Rx Confirmed 11/16/17 Last Taken Unknown] Albuterol Sulfate 2.5 mg INHALATION Q4-6HP PRN 11/16/17 [History Confirmed 11/16 Last Taken Unknown] Ferrous Sulfate 650 mg PO QAMCC 11/16/17 [History Confirmed 11/16/17 Last Taken Unknown] Fluticasone Furoate [Arnuity Ellipta] 1 puff IH DAILY 11/16/17 [History Confirmed 11/16/17 Last Taken Unknown] Montelukast Sodium [Singulair] 10 mg PO HS 11/16/17 [History Confirmed 11/16/17 Last Taken Unknown] Enoxaparin [Lovenox] 30 mg SQ BID #20 syringe 11/26/17 [Rx Last Taken Unknown] oxyCODONE HCL [Roxicodone] 10 mg PO Q6HP PRN #60 tab 11/26/17 [Rx Last Taken Unknown] Methocarbamol [Robaxin] 750 mg PO Q6HP PRN #30 tab 11/27/17 [Rx Last Taken Unknown] Medical - DS: Hosp Hospital course: Mr. Arias is a 47 year old Male with h/o morbid obesity, recent rt TKA by Dr Murillo, presented to the ER with complaints of not feeling well x 2 days. The patient had Right TKA done at this facility on 11/23/17, he was subsequently discharged to [facility] 2 weeks, he received lovenox 30mg bid x 2 weeks as per the patient. The patient was then discharged home with plan to [facility]. The patient was discharged on monday. The patient reports that home health was not scheduled and he was not able to do much rehab, he was still able to do basic ADL without issues. Since monday he has noticed increased fatigue, sinus congestion, chills and weakness. He was very weak on monday and slept most of the time. Today since there was no improvement in his condition ,he decided to come to the ER for evaluation. He has sob on exertion, subjective sensation fo chills, no fever documented. He has some dizziness, no chest pain, he admits to nausea, no vomiting. In the ER the patient was afebrile, but was tachycardic, HR max was 119, but settled to 100-110 later. The patient labs unremarkable except elevated d dmier CTA shows pulmonary embolism, not massive. USSG duplex reported as negative Given that patient just had knee surgery and is weak and fatigued he was admitted to the hospital for further management. The patient denies any h/o significant bleed. Thep atient was started on eliquis and responded to treatment well, his labs remained stable, no gi bleed, he remained hemodynamically stable, not needing oxygen. He worked with PT today and was able to tolerate same very well. The patient will be discharged on eliquis 10mg bid x 6 more days (got 2 doses here) and then 5mg bid x 3 months. The patient has [employer] insurance, but we verified that he will not have any copay for same. At the time of discharge he was tolerating po well, ambulating well with help of walker, his home health order has been signed. Discharge diagnosis: Pulmonary embolism - Time Spent with Patient Total time spent providing and/or coordinating discharge services: Greater than 30 minutes Medical - DS: Exam - Constitutional Vitals: Vital Signs Temp Pulse Pulse Resp BP BP Pulse Ox 12/18/17 07:47 98.4 F 16 131/76 93 12/18/17 07:30 93 12/18/17 03:51 97.9 F 12/18/17 03:49 98 H 141/67 96 12/18/17 03:40 90 20 12/18/17 00:23 111 H 153/108 90 12/17/17 22:06 115/105 12/17/17 22:03 118 H 159/105 94 12/17/17 21:56 114 H 157/104 94 12/17/17 21:54 113 H 142/107 92 12/17/17 21:35 99.5 F H 112 H 115 H 18 137/75 115/105 94 12/17/17 21:31 98.3 F 117 H 22 129/75 95 12/17/17 21:28 112 H 95 12/17/17 21:20 108 H 137/75 93 12/17/17 20:05 103 H 14 97 12/17/17 20:03 101 H 15 121/81 96 12/17/17 19:58 104 H 13 96 12/17/17 19:41 101 H 19 120/67 97 12/17/17 17:51 111 H 18 12/17/17 16:29 98.7 F 119 H 18 118/84 98 Intake and Output 12/17/17 12/18/17 12/18/17 21:59 05:59 13:59 Intake Total 1230 / 1230 700 / 700 Balance 1230 / 1230 700 / 700 Intake: IV 1000 / 1000 Oral 700 / 700 GI Tube Flush 230 / 230 Other: Meal Breakfast Percent of Meal Consumed 100% Feeding Ability Independent # Voids 1 # Bowel Movements 1 Weight 354 lb 8 oz Additional comments: Constitutional; Afebrile, cooperative, alert, not in distress. Eyes- No icterus, , No periorbital swelling Ears- Ext ear normal, hearing normal to conversation. Neck- Midline trachea, supple Respiratory system: Air Entry equal on both sides, No crackles or wheezing, no rhonchi. CVS- Rate rhythm regular, S1,S2 heard, no gallop, no rub. Abdomen- Soft nontender abdomen, no organomegaly, no tenderness, no guarding or rigidity, TOOL PUSHER- AOOx3, moving all extremities, no gross focal deficit noted. Medical - DS: Data Labs on day of discharge: Labs from last 24 hours 0112/18/17 12/17/17 07:48 07:48 19:00 WBC 6.7 RBC 4.62 Hgb 14.1 Hct 42.4 MCV 91.8 MCH 30.6 MCHC 33.3 RDW 13.9 Plt Count 315 MPV 9.2 Gran % 49.0 Lymph % (Auto) 31.1 Coke % (Auto) 12.3 H Eos % (Auto) 7.2 H Baso % (Auto) 0.4 Gran # 3.3 Lymph # (Auto) 2.1 Coke # (Auto) 0.8 Eos # (Auto) 0.5 Baso # (Auto) 0 POC PT 13.4 POC INR 1.1 D-Dimer VBG Lactic Acid Sodium 139 Potassium 4.0 Chloride 99 Carbon Dioxide 26 Anion Gap 14.0 BUN 14 Creatinine 1.0 GFR Calculation 89 Glucose 119 H Uric Acid 7.3 Calcium 8.6 Phosphorus 4.9 H Magnesium 2.0 Total Bilirubin 0.3 Direct Bilirubin < 0.2 GGT 29 AST 16 ALT 21 Alkaline Phosphatase 90 Lactate Dehydrogenase 141 Total Creatine Kinase CK-MB (CK-2) Troponin T Total Protein 6.6 Albumin 3.7 Globulin 2.9 Albumin/Globulin Ratio 1.3 Triglycerides 95 12/17/17 12/17/17 12/17/17 17:06 16:56 16:56 WBC RBC Hgb Hct MCV MCH MCHC RDW Plt Count MPV Gran % Lymph % (Auto) Coke % (Auto) Eos % (Auto) Baso % (Auto) Gran # Lymph # (Auto) Coke # (Auto) Eos # (Auto) Baso # (Auto) POC PT POC INR D-Dimer VBG Lactic Acid 1.4 Sodium 138 Potassium 4.2 Chloride 98 Carbon Dioxide 24 Anion Gap 16.0 BUN 12 Creatinine 0.9 GFR Calculation 101 Glucose 118 H Uric Acid Calcium 9.0 Phosphorus Magnesium Total Bilirubin 0.3 Direct Bilirubin GGT AST 17 ALT 24 Alkaline Phosphatase 102 Lactate Dehydrogenase Total Creatine Kinase 54 CK-MB (CK-2) 1.3 Troponin T < 0.01 Total Protein 7.4 Albumin 4.0 Globulin 3.4 Albumin/Globulin Ratio 1.2 Triglycerides 12/17/17 12/17/17 16:56 16:56 WBC 7.1 RBC 5.02 Hgb 15.2 Hct 45.9 MCV 91.4 MCH 30.3 MCHC 33.1 RDW 14.0 Plt Count 314 MPV 9.7 Gran % 63.4 Lymph % (Auto) 20.7 Coke % (Auto) 9.5 Eos % (Auto) 6.0 Baso % (Auto) 0.4 Gran # 4.5 Lymph # (Auto) 1.5 Coke # (Auto) 0.7 Eos # (Auto) 0.4 Baso # (Auto) 0 POC PT POC INR D-Dimer 3.56 H VBG Lactic Acid Sodium Potassium Chloride Carbon Dioxide Anion Gap BUN Creatinine GFR Calculation Glucose Uric Acid Calcium Phosphorus Magnesium Total Bilirubin Direct Bilirubin GGT AST ALT Alkaline Phosphatase Lactate Dehydrogenase Total Creatine Kinase CK-MB (CK-2) Troponin T Total Protein Albumin Globulin Albumin/Globulin Ratio Triglycerides Medical - DS: A/P - Patient/Caregiver Discharge Instructions Activity: as per physical therapy, increase activity as tolerated Diet: Regular Diet Additional Instructions: Take eliquis 10mg (2 tabs) twice daily x 6 more days then eliquis 5 mg twice daily for 3 months. Take levocetrizine 5mg once daily for 7 days for sinus congestion. Go to the ER if severe bleeding, blood in stools or urine, chest pain, shortness of breath or any other significant concern. Follow up with PCP in 1 week Follow up with ortho as previously scheduled. - Follow up Plan Follow up with: Emmanuel Morales PA-C [Primary Care Provider] - 12/26/17 9:00 am (Check in at 8 :45 am.) Disposition: Home Health Service Prognosis: Fair Rehab Potential: Fair I certify that the patient requires SNF services: No Overall status at discharge: patient is progressing back to baseline Medical - DS: Qual - VTE Deep Vein Thrombosis/Pulmonary Embolism Present on Admission: Yes
[2017-12-18] MEDS ORDERED: IPRATROPIUM/ALBUTEROL 3 ML AMPUL.NEB NEB SCH (13:00)
== END 2017-12-18 14:25 | disposition home health service (06) ==
LOC: ICU 16:28 → ED 16:28 → ICU 21:35
PROVIDERS: ADMIT Internal Medicine; ATTEND Internal Medicine